=== PATIENT | female | born 1960 | race Caucasian/White ===

== ENCOUNTER → 2017-09-25 | Outpatient (CLI) | payer BC ==
[~2017-09-25] MED LIST: CALC-51 PO; CITA10TA8 PO; FISHOIL PO; Iron PO; VITAMIN C PO; VITAMIN D PO; immune support PO
--- NOTE | 2017-09-25 15:11 | MAMMOGRAPHY REPORT ---
BILATERAL DIGITAL DIAGNOSTIC MAMMOGRAM TOMOSYNTHESIS WITH CAD AND TARGETED RIGHT ULTRASOUND: 09/25/20 17 CLINICAL HISTORY: 57-year-old woman with a personal history of right breast cancer status post breast conservation treatment presents for annual bilateral mammograms. Also history of prior left breast surgery. TECHNIQUE: Bilateral breast tomosynthesis in addition to standard 2D mammography was performed. Curre nt study was also evaluated with a Computer Aided Detection (CAD) system. COMPARISON: Comparison is made to exams dated: 09/18/2016 mammogram, 09/15/2015 mammogram, 04/15/2015 [place] MRI, 09/08/2014 mammogram, and 08/22/2013 ultrasound - [facility]. BREAST COMPOSITION: The tissue of both breasts is heterogeneously dense, which may obscure small mas ses. FINDINGS: There is expected architectural distortion and surgical clips in the 12:00 through 2:00 pos terior right breast, denoting the area of prior lumpectomy. There is stable architectural distortion in the upper outer posterior left breast in an area of prior surgery. There are 2 benign coarse julissa cifications in the left breast. An asymmetry in the lateral, middle one third of the right breast on the CC view effaces on the corresponding tomosynthesis images but additional evaluation with ultraso und was performed. No unexpected architectural distortion, developing asymmetry or suspicious calcif ications are seen bilaterally. Targeted ultrasound was performed in the lateral right breast. Sonographic normal tissue is seen wit hout a suspicious solid or cystic mass. The mammographic asymmetry is considered benign and most lik ambrose represents normal overlapping fibro-glandular tissue. IMPRESSION: ACR BI-RADS CATEGORY 2: BENIGN, TARGETED ULTRASOUND ACR BI-RADS CATEGORY 2: BENIGN There is no mammographic evidence of malignancy bilaterally in the breasts. No targeted sonographic evidence of malignancy in the lateral right breast. A 1 year diagnostic mammogram is recommended, in case any additional mammographic views or ultrasound may be needed, given the personal history of [place] cancer and dense breasts. These results and recommendations were discussed with the patient at the time of the exam. Approximately 10% of breast cancers are not detected with mammography. A negative mammographic report should not delay biopsy if a clinically suggestive mass is present. Lola Vizcaino M.D. ay/:09/25/2017 08:52:16 Delivery Crew Member: Carmen MARTINEZ)(Jing), [facility] letter sent: Normal /2 BI-RADS Code: ACR BI-RADS Category 2: Benign Ultrasound BI-RADS: ACR BI-RADS Category 2: Benign
== END | disposition home or self-care (01) ==
LOC: C.MAMM 08:02
PROVIDERS: ATTEND Obstetrics & Gynecology
DX: Z12.31 Encounter for screening mammogram for malignant neoplasm of breast (principal)

== ENCOUNTER → 2017-11-19 | Outpatient (CLI) | payer OTHER | END | disposition home or self-care (01) | LOC: C.PAPS 09:41 | PROVIDERS: ATTEND Obstetrics & Gynecology | DX: Z01.419 Encounter for gynecological examination (general) (routine) without abnormal findings (principal) ==

== ENCOUNTER 2018-12-23 08:18 | Observation (INO) ==
--- NOTE | 2018-12-12 13:59 | Anesthesiology Consultation ---
Date of Service December 12, 2018 Assessment & Plan (1) Encounter for pre-operative examination: Plan: - S/P Left breast biopsy with needle loc= 12/03/18= LMA#4 at [facility] Chart Review Chart Review: Acceptable Risk for Surgery and Patient NOT seen in Pre Admission Testing History Surgery Operation Date: 12/23/18 08:20 Proposed Procedures p Left Breast Lumpectomy with [place] Lymph Node Biopsy (Injection Only @ 0800 , No Needle Loc) - David Laguerre MD, FACS Height/Weight Height: 5 ft 7.5 in Weight: 67.132 kg Allergies Allergy/AdvReac Type Severity Reaction Status Date / Time Cipro Allergy Unknown IV- Vein Verified 07/20/14 13:45 turned red ciprofloxacin Allergy Unknown IV- Vein Verified 12/12/18 12:24 turned red clindamycin Allergy Unknown FACE Verified 12/12/18 12:24 SWELLED UP latex Allergy Unknown SKIN Verified 12/12/18 12:24 REDNESS AND RASH Penicillins Allergy Unknown RED Verified 12/12/18 12:24 BLOTCHES, HIVES ALL OVER BODY Sulfa (Sulfonamide Allergy Unknown SICK TO Verified 12/12/18 12:24 Antibiotics) STOMACH Medications Home Medications Medication Instructions Recorded Confirmed Last Taken Allerplex 1 dose PO QAM 11/13/18 12/12/18 12/02/18 05:30 Ferra Food 1 dose PO QAM 11/13/18 12/12/18 12/02/18 05:30 Juice Plus 1 dose PO QAM 11/13/18 12/12/18 12/02/18 05:30 citalopram [Celexa] 20 mg PO QPM 11/13/18 12/12/18 12/02/18 18:00 lactobacillus combination no.4 1 dose PO DAILY 11/13/18 12/12/18 12/02/18 05:30 [Probiotic] Arnica Beadlets 1 dose PO UD 12/12/18 12/12/18 Unknown ascorbic [id number] 1 dose PO QAM 12/12/18 12/12/18 Unknown [Emergen-C] cholecalciferol (vitamin D3) 400 unit PO QAM 12/12/18 12/12/18 Unknown [Vitamin D3] turmeric 1 cap PO BID 12/12/18 12/12/18 Unknown Past Medical History Medical History Anxiety Connective tissue disorder "AUTOIMMUNE DEFFICIENCY"; NO FURTHER DETAILS History of Kapoor's palsy 2017 History of anemia History of breast cancer Past Family History Family History Mother Family history of multiple myeloma Aunt Family history of cervical cancer Sister Family history of breast cancer Past Surgical History Surgical History History of breast surgery LEFT BREAST BIOPSY WITH NEEDLE LOC= 12/03/18= LMA#4 AT [facility] History of colonoscopy History of partial mastectomy of right breast History of skin graft LEFT ANKLE History of surgical biopsy LEFT BREAST History of tubal ligation Hx of right knee surgery Social History Smoking Status: Never smoker Do You Dip or Chew Tobacco: No Hx Alcohol Use: Yes Alcohol type: wine alcohol intake frequency: a few times a month Hx Substance Use: No substance use type: does not use Testing Electrocardiogram Date: 11/20/18 NSR at 67bpm. Rightward axis. Laboratory Results 11/15/18 WBC 4.3 H/H 13.0/38.3 PLATELETS 284 SODIUM 137 POTASSIUM 4.1 CHLORIDE 100 CO2 33 BUN 15 CREATININE 0.73 GLUCOSE 80
[~2018-12-23 08:18] MED LIST changes: -CALC-51 PO; +CEFAZOLIN 2000MG 2,000 MG/15 ML SYR IV SCH; -CITA10TA8 PO; -FISHOIL PO; -Iron PO; +LR 15ML/HR IV SCH; -VITAMIN C PO; -VITAMIN D PO; -immune support PO
--- NOTE | 2018-12-23 09:19 | Nuclear Medicine Report ---
Study: Lymphoscintigraphy left breast HISTORY: Breast carcinoma. FINDINGS: Following description of procedure and informed consent, a total of 5 subcutaneous injectio ns was performed in the left periareolar distribution. Injection totaled 0.5 mCi of technetium 99m ly mphocele. There was no postprocedural imaging IMPRESSION: Successful left breast periareolar injections for lymphoscintigraphy Electronically signed by: Micha Mcgill M.D. 12/23/2018 9:18 AM
--- NOTE | 2018-12-23 09:49 | History & Physical Bridge Note ---
Date of Service December 23, 2018 History & Physical Bridge Note I have examined the patient, reviewed the History & Physical and in the interval since the performance of the History & Physical I have noted the following changes of clinical significance: no changes noted
[2018-12-23] MEDS ORDERED: ePHEDrine sulfate 50 MG/ML AMP IV PRN (10:28)
[2018-12-23] MEDS ORDERED: ONDANSETRON INJ 2 MG/ML 2 ML VIAL IV PRN ×2 (10:28→13:50)
[2018-12-23] MEDS ORDERED: ATROPINE SULFATE 0.1 MG/ML 10ML SYR IV PRN (10:28)
[2018-12-23] MEDS ORDERED: fentaNYL citrate 100 MCG/2 ML VIAL IV PRN (10:28)
[2018-12-23] MEDS ORDERED: PROPOFOL IV EMULSION 10 MG/ML 20 ML VIAL IV ONE (10:50)
[2018-12-23] MEDS ORDERED: MIDAZOLAM HCL 1 MG/ML 2ML VIAL ONE (10:50)
[2018-12-23] MEDS ORDERED: ONDANSETRON INJ 2 MG/ML 2 ML VIAL ONE (10:50)
[2018-12-23] MEDS ORDERED: LIDOCAINE HCL 2% 2 ML VIAL/AMP(20MG/ML) INFIL ONE (10:50)
[2018-12-23] MEDS ORDERED: fentaNYL citrate 100 MCG/2 ML VIAL ONE ×2 (10:50→10:52)
[2018-12-23] MEDS ORDERED: DEXAMETHASONE SOD INJ 4 MG/ML VIAL ONE (10:50)
[2018-12-23] MEDS ORDERED: ISOSULFAN BLUE 10 MG/ML VIAL 5 ML ONE (11:12)
[2018-12-23] MEDS ORDERED: METHYLENE BLUE 0.5% 10 ML VIAL ONE (11:12)
[2018-12-23] MEDS ORDERED: BUPIVACAINE 0.5 % 5 MG/1 ML MPF 30ML VIAL ONE (11:12)
[2018-12-23] MEDS ORDERED: ACETAMINOPHEN 1,000 MG/100 ML VIAL IV ONE (12:36)
--- NOTE | 2018-12-23 12:36 | Operative Report ---
Post Operative Report Pre & Post Diagnosis Operation Date: 12/23/18 11:00 Pre-Op Diagnosis: Left Breast Cancer Post-Op Diagnosis: Left Breast Cancer same Procedure Operation Date: 12/23/18 11:00 Actual Procedures p Left Breast Lumpectomy with [place] Lymph Node Biopsy(Left) - David Laguerre MD, FACS same Surgeon David Laguerre MD, FACS Radio Assembler America Alcazar Estimated Blood Loss 10 Findings Consistent with Post-Op Diagnosis Specimens Lt breast tissue and Lt axillary LNs Description of Procedure see dictation I attest to the content of the Intraoperative Record and any orders documented therein. Any exceptions are noted below.
[2018-12-23] MEDS ORDERED: ePHEDrine sulfate 50 MG/ML SYR ONE (12:47)
--- NOTE | 2018-12-23 13:19 | Anesthesiology Progress Note ---
Date of Service December 23, 2018 Anesthesia Post Procedure Vital Signs Vital Signs: Temp Pulse Pulse Resp BP Pulse Ox 12/23/18 13:10 69 16 118/77 100 12/23/18 13:00 70 16 118/74 100 12/23/18 12:50 97.3 F L 73 16 122/73 100 12/23/18 09:00 98.2 F 63 18 134/88 100 Notes Mental Status: alert / awake / arousable and participated in evaluation Patient Amnestic to Procedure: Yes Nausea / Vomiting: adequately controlled Pain: adequately controlled Airway Patency, RR, SpO2: stable & adequate BP & HR: stable & adequate Hydration State: stable & adequate Anesthetic Complications: no major complications apparent and Pt Satisfied with anesthetic care
--- NOTE | 2018-12-23 13:32 | Operative Report ---
DATE OF OPERATION: 12/23/2018 NAME OF OPERATION: Left breast lumpectomy with reexcision and sentinel lymph node biopsy. PREOPERATIVE DIAGNOSIS: Left breast cancer. POSTOPERATIVE DIAGNOSIS: Left breast cancer. STAFF SURGEON: Dr. Laguerre. CHIP APPLYING MACHINE TENDER: Nick Alcazar PA-C. ANESTHESIA: General. PROCEDURE: The patient was brought in the operating room and placed on the operating table in supine position. Her left arm was extended on an arm board. She had had injection for sentinel lymph node biopsy preoperatively. As a note, my physician assistant surgery, Nick Alcazar PA-C, helped with prepping, draping and excision of the breast and axillary tissue and closure of the wounds. Initially, an incision was made in the left axilla. Using 0.5% plain Marcaine, anesthetized the skin in the breast and axilla. Dissection was carried down deeply, identifying active counts and identifying what appeared to be 2 lymph nodes. This tissue was sent for frozen section. The frozen section was negative. During the frozen section, we performed reexcision lumpectomy. We made an elliptical incision around the prior incision, which was in the upper medial breast carrying dissection down into the cavity and then we excised additional tissue inferiorly and superiorly. The inferior tissue was marked with skin anterior, long silk suture lateral, short silk suture medial and methylene blue new margin. This was the area of the dense breast tissue in the subareolar area. We took additional superior tissue, which was marked with a long silk suture lateral, short silk suture medial and methylene blue new margin. This tissue was mostly fatty tissue. The original specimen was down to the muscle. At this point, after appropriate irrigation, the left axilla was closed by reapproximating the deep tissue using 2-0 plain suture, then the skin using 5-0 Prolene suture. Breast was reapproximated with 2-0 plain for the deep tissue and 4-0 subcuticular Monocryl and Steri-Strips for the skin. The patient was transferred to recovery room in stable condition. I attest to the content of the Intraoperative Record and any orders documented therein. Any exception s are noted below.
[2018-12-23] MEDS ORDERED: HYDROCODONE/ACETAMOPHEN 5/325MG TAB PO PRN (13:50)
[2018-12-23] MEDS ORDERED: MoRPHine SULFATE 4 MG/ML 1 ML CARP\\VIAL IV PRN ×2 (13:50)
[2018-12-23] MEDS ORDERED: PROMETHAZINE HCL 25 MG in SODIUM CHLORIDE 0.9% 50 ML IV PRN (13:50)
[2018-12-23] MEDS ORDERED: PROMETHAZINE HCL 12.5 MG in SODIUM CHLORIDE 0.9% 50 ML IV PRN (13:50)
[2018-12-23] MEDS ORDERED: ACETAMINOPHEN 325 MG TAB PO PRN (13:50)
[2018-12-23] MEDS ORDERED: SODIUM CHLORIDE 0.9% 1000ML 1,000 ML IV SCH (16:00)
[2018-12-23] MEDS: HYDROCODONE/ACETAMOPHEN 5/325MG TAB PO PRN ×2 (16:35→20:55)
[2018-12-23] MEDS: CEFAZOLIN 1000MG 1,000 MG/7.5 ML SYR IV SCH (19:46)
--- NOTE | 2018-12-23 20:48 | Consultation ---
Date of Consultation December 23, 2018 Assessment & Plan (1) Breast cancer: s/p left-sided lumpectomy today with sentinel lymph node biopsy by Dr. Laguerre. The patient has no other major medical problems and post-op was doing well today. Vitals stable. Patient well during the encounter. Treat operative pain as needed. Anticipate Dr. Laguerre will d/c early tomorrow am if she has a good night. I have nothing further to offer at this time and thus will sign off. Please call with any questions or problems. Thank you for this consult. Present on Admission?: Yes History of Present Illness Reason for Consultation: post-op medical management Requesting Physician: Dr. David Laguerre Attending Physician: David Laguerre MD, FACS History of Present Illness Very pleasant 58yo female with h/o right sided breast cancer 16 years ago s/p lumpectomy who presents for lumpectomy of the left breast today after biopsy of the left breast in late November revealed breast cancer. She underwent her lumpectomy today by Dr. David Laguerre. [place] lymph node biopsy was also performed. I saw the patient post-op on the surgical floor. She was eating dinner upon arrival. She voiced having poor appetite but denied nausea or emesis. Denied cp, dyspnea, abd pain. Only mild left breast operative pain. Allergies Allergy/AdvReac Type Severity Reaction Status Date / Time Cipro Allergy Unknown IV- Vein Verified 07/20/14 13:45 turned red ciprofloxacin Allergy Unknown IV- Vein Verified 12/12/18 12:24 turned red clindamycin Allergy Unknown FACE Verified 12/12/18 12:24 SWELLED UP latex Allergy Unknown SKIN Verified 12/12/18 12:24 REDNESS AND RASH Penicillins Allergy Unknown RED Verified 12/12/18 12:24 BLOTCHES, HIVES ALL OVER BODY Sulfa (Sulfonamide Allergy Unknown SICK TO Verified 12/12/18 12:24 Antibiotics) STOMACH Home Medications Home Medications Medication Instructions Recorded Confirmed Type Allerplex 1 dose PO QAM 11/13/18 12/12/18 History Ferra Food 1 dose PO QAM 11/13/18 12/12/18 History Juice Plus 1 dose PO QAM 11/13/18 12/12/18 History citalopram [Celexa] 20 mg PO QPM 11/13/18 12/12/18 History lactobacillus combination no.4 1 dose PO DAILY 11/13/18 12/12/18 History [Probiotic] Arnica Beadlets 1 dose PO UD 12/12/18 12/12/18 History ascorbic [id number] 1 dose PO QAM 12/12/18 12/12/18 History [Emergen-C] cholecalciferol (vitamin D3) 400 unit PO QAM 12/12/18 12/12/18 History [Vitamin D3] turmeric 1 cap PO BID 12/12/18 12/12/18 History cephalexin [Keflex] 500 mg PO TID #21 cap 12/23/18 Rx hydrocodone-acetaminophen [[place]] 1 - 2 tab PO Q6H #30 tab 12/23/18 Rx Patient History Medical History Anxiety Connective tissue disorder "AUTOIMMUNE DEFFICIENCY"; NO FURTHER DETAILS History of Kapoor's palsy 2016 History of anemia History of breast cancer right, s/p lumpectomy, early Surgical History History of breast surgery LEFT BREAST BIOPSY WITH NEEDLE LOC= 12/03/18= LMA#4 AT [facility] History of colonoscopy History of partial mastectomy of right breast History of skin graft LEFT ANKLE History of surgical biopsy LEFT BREAST History of tubal ligation Hx of right knee surgery Family History Mother Family history of multiple myeloma Aunt Family history of cervical cancer Sister Family history of breast cancer Social History marital status: single, but in relationship Current Living Situation: Alone current occupational status: employed current occupation: works at [employer] Other Information That Helps Us Care for You: No Feels Safe at Home: Yes Safety Concerns: Feels Safe At This Time Smoking Status: Never smoker Do You Dip or Chew Tobacco: No Hx Alcohol Use: Yes Alcohol type: wine Alcohol Intake Frequency: a few times a month Hx Substance Use: No Beliefs That Will Affect Care: None Preferred Language: [place] Communication Ability: Effective Manager Creative Services Required: No Review of Systems Constitutional: + weight loss; no fever, no chills, no fatigue and no anorexia 4 pounds last few weeks - due to anxiety about breast ca Ear, Nose, Mouth, Throat: no sore throat Respiratory: no cough and no dyspnea Cardiovascular: no chest pain Gastrointestinal: no abdominal pain, no nausea and no vomiting Genitourinary (Female): no dysuria Musculoskeletal: no joint pain Integumentary: no rash Neurologic: no localized weakness Psychiatric: + anxiety Endocrine: no fatigue, no polydipsia, no polyphagia and no polyuria Hematologic / Lymphatic: no easy bleeding Physical Exam 2 Vital Signs (Past 24 Hours): Last Vital Signs Temp 36.7 C 12/23/18 19:25 Pulse 65 12/23/18 19:25 Resp 16 12/23/18 19:25 BP 117/75 12/23/18 19:25 Pulse Ox 97 12/23/18 19:25 Constitutional: WD/WN, vitals as above Eyes: PERRL ENMT: external ear and nose normal, oropharynx normal Neck: trachea midline, no thyromegaly Respiratory: normal respiratory effort, lungs clear to auscultation Cardiovascular: RRR, no murmur, no edema Heart Sounds: normal S1 and normal S2 Vessels: posterior tibial pulses present and dorsalis pedis pulses present; no JVD Extremities: no edema Gastrointestinal (Abdomen): normal bowel sounds, soft, nontender, no hepatosplenomegaly Skin: no rashes, warm and dry Neurologic: deep tendon reflexes 2+ bilaterally; no focal motor deficits Psychiatric: A+Ox3, euthymic affect Lymphatic: no cervical lymphadenopathy Results & Data Laboratory Results recent BMP done as outpatient through [facility] --- normal BMP _ (1) Breast cancer Breast location: unspecified site of breast Estrogen receptor status: unspecified Patient sex: female Laterality: left Qualified Code(s): C50.912 - Malignant neoplasm of unspecified site of left female breast
[2018-12-23] MEDS: CITALOPRAM 20 MG TAB PO SCH ×2 (20:55→23:18)
[2018-12-24] MEDS: CEFAZOLIN 1000MG 1,000 MG/7.5 ML SYR IV SCH (03:19)
[2018-12-24] MEDS: HYDROCODONE/ACETAMOPHEN 5/325MG TAB PO PRN (03:19)
[2018-12-24 07:44] VITALS: BP 114/74; TEMP 98.2; O2SAT 98
--- NOTE | 2018-12-24 08:24 | Anesthesiology Progress Note ---
Date of Service December 24, 2018 Anesthesia Post Procedure Vital Signs Vital Signs: Temp Pulse Pulse Pulse Resp BP Pulse Ox 12/24/18 07:35 36.8 C 69 16 114/74 98 12/24/18 03:35 36.6 C 61 16 109/61 99 12/23/18 23:10 36.9 C 60 16 118/57 L 97 12/23/18 19:25 36.7 C 65 16 117/75 97 12/23/18 16:54 37.3 C 79 17 109/70 97 12/23/18 15:30 37.0 C 82 17 118/71 95 12/23/18 14:47 72 16 128/76 97 12/23/18 14:18 67 16 125/75 100 12/23/18 13:20 36.5 C 71 16 128/78 98 12/23/18 13:10 69 16 118/77 100 12/23/18 13:00 70 16 118/74 100 12/23/18 12:50 36.3 C L 73 16 122/73 100 12/23/18 09:00 36.8 C 63 18 134/88 100 Pain Intensity Left Breast: Pain Intensity: 5 Notes Mental Status: alert / awake / arousable and participated in evaluation Nausea / Vomiting: adequately controlled Pain: adequately controlled Airway Patency, RR, SpO2: stable & adequate BP & HR: stable & adequate Hydration State: stable & adequate Anesthetic Complications: no major complications apparent and Pt Satisfied with anesthetic care
--- NOTE | 2018-12-24 09:59 | Discharge Summary ---
PRINCIPAL DIAGNOSIS: Left breast cancer, status post left breast surgery. PROCEDURES: The patient underwent left breast reexcision lumpectomy with sentinel lymph node biopsy. HISTORY OF PRESENT ILLNESS: The patient is a 58-year-old female with biopsy proven tubular cancer of the left breast which showed negative margins, but they were close. Therefore, she needed a reexcision with a lymph node biopsy. HOSPITAL COURSE: The patient was brought into the hospital on 12/23/2018 where she underwent a left sentinel lymph node biopsy which was actually negative on frozen section and also reexcision left lumpectomy which she tolerated well. She has done well overnight and is felt stable for discharge home today to be followed in the surgical clinic within 1-2 weeks.
[2018-12-24 10:21] VITALS: PULSE 79
== END 2018-12-24 10:52 | disposition home or self-care (01) ==
LOC: ASU 08:18 → 3N 08:18